=== PATIENT | male | born 1975 ===

== ENCOUNTER 2020-10-10 10:02 | Emergency (ER) | payer SELFPAY ==
[2020-10-10 10:05] VITALS: BP 122/80
[2020-10-10] MEDS ORDERED: ASPIRIN 325 MG TAB PO ONE (10:05)
--- NOTE | 2020-10-10 10:36 | XRay Report ---
CHEST 2 VIEWS INDICATION / CLINICAL INFORMATION: chest pain. COMPARISON: None available. FINDINGS: SUPPORT DEVICES: None. HEART / MEDIASTINUM: No significant abnormality. LUNGS / PLEURA: No significant pulmonary or pleural abnormality. No pneumothorax. ADDITIONAL FINDINGS: No significant additional findings. IMPRESSION: 1. No acute findings. Signer Name: Carlitos Herbert DO Signed: 10/10/2020 10:32 AM Workstation Name: [id number]
[2020-10-10 11:10] LABS: Basophils % (Auto) 0.5 % (0.0-1.8); Eosinophils % (Auto) 0.4 % (0.0-4.3); Hematocrit 48.1 % (35.5-45.6); Hemoglobin 16.5 gm/dl (11.8-15.2); Lymphocytes % (Auto) 13.9 % (13.4-35.0); Mean Corpuscular HGB Conc 34 % (32-34); Mean Corpuscular Volume 94 fl (84-94); Monocytes # (Auto) 0.6 K/mm3 (0.0-0.8); Monocytes % (Auto) 8.1 % (0.0-7.3); Platelet Count 142 K/mm3 (140-440); Red Cell Distribution Width 13.7 % (13.2-15.2)
[2020-10-10 11:35] LABS: Alanine Aminotransferase 50 units/L (7-56); Blood Urea Nitrogen 8 mg/dL (9-20); Calcium 8.7 mg/dL (8.4-10.2); Hemolysis Index 5
[2020-10-10 11:57] LABS: BUN/Creatinine Ratio 13
--- NOTE | 2020-10-10 12:24 | Event Note ---
ED Screening Note ED Screening Note: states he has been feeling sick for a week with "cough/flu symptoms" states he has been taking tylenol lightheaded that occurred this morning +left sided CP no COVID 19 vaccine got a COVID 19 test and is awaiting results +subjective fever +ANGULO +chills +diarrhea +SOB PMHx HTN non smoker This initial assessment/diagnostic orders/clinical plan/treatment(s) is/are subject to change based on patients health status, clinical progression and re- assessment by fellow clinical providers in the ED. Further treatment and workup at subsequent clinical providers discretion. Patient/guardian urged not to elope from the ED as their condition may be serious if not clinically assessed and managed. Initial orders include: needs second troponin, add on d-dimer
--- NOTE | 2020-10-11 09:22 | Electrocardiograph Report ---
[facility] Test Date: 2020-10-10 Test Time: 10:11:47 Pat Name: RAQUEL COLON Department: Room: Gender: M Education Associate: PRASANNA : 1975 Requested By: ED DOC Order Number: [id number] Reading MD: Hansel Kline Measurements Intervals [place] Rate: 104 P: 59 [place]: 155 QRS: 92 QRSD: 93 T: 31 QT: 400 QTc: 527 Interpretive Statements Sinus tachycardia Prolonged QT interval RAD. NSSTTW'S No previous ECG available for comparison Electronically Signed On 10-11-2020 9:22:42 EDT by Hansel Kline
== END 2020-10-10 16:35 | disposition left against medical advice (07) ==
LOC: ED 10:02
DX: Z00.8 Encounter for other general examination (principal); Z53.21 Procedure and treatment not carried out due to patient leaving prior to being seen by health care provider
CPT/HCPCS: 36415; 71046; 80053; 83735; 84484; 85025; 85379; 93005